=== PATIENT | male | born 2005 | race African-American/Black ===

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

== ENCOUNTER → 2023-03-15 | Outpatient (REF) ==
[~2023-03-15] MED LIST changes: +CEFD1CAP9 PO; -CEFD300C41 PO; +DICL100G10 TOP; -DICL1GEL3 TOP; +NAPR-837 PO
[2023-03-15 10:30] LABS: RSV AMPLIFICATION NEGATIVE (NEGATIVE)
== END ==
LOC: M EMP 09:03
PROVIDERS: ATTEND Family Medicine
DX: Z11.52 Encounter for screening for COVID-19 (principal)

== ENCOUNTER → 2023-10-13 | Outpatient (REF) | LOC: M EMP 10:46 | PROVIDERS: ATTEND Family Medicine | DX: Z20.822 Contact with and (suspected) exposure to COVID-19 (principal) ==